=== PATIENT | male | born 1980 | race African-American/Black ===

== ENCOUNTER 2020-01-18 22:02 | Emergency (ER) | payer SELFPAY ==
[~2020-01-18] VITALS: Ht 188 cm; Wt 112.3 kg
[2020-01-18 22:11] VITALS: BP 123/81; TEMP 98.1
[2020-01-19 00:16] VITALS: PULSE 60
== END 2020-01-19 00:16 | disposition home or self-care (01) ==
LOC: COL.ER 22:02
DX: S09.90XA Unspecified injury of head, initial encounter (principal); S80.12XA Contusion of left lower leg, initial encounter; F32.9 Major depressive disorder, single episode, unspecified; V43.52XA Car driver injured in collision with other type car in traffic accident, initial encounter; Y92.410 Unspecified street and highway as the place of occurrence of the external cause

== ENCOUNTER 2023-02-19 13:21 | Emergency (ER) | payer OTHER ==
[~2023-02-19] VITALS: Ht 188 cm; Wt 97.7 kg
[2023-02-19 13:29] VITALS: TEMP 98.6
[2023-02-19 13:58] LABS: HEMATOCRIT 44.1 % (42.0-52.0); HEMOGLOBIN 14.9 g/dl (13.5-18.0); MEAN CELL VOLUME 89 fl (80.0-100.0); MEAN CORPUSCULAR HEMOGLOBIN 30 pg (27-31); MEAN CORPUSCULAR HGB CONC 34 g/dl (33.0-37.0); MEAN PLATELET VOLUME 11.6 fl (7.4-10.4); PLATELET COUNT 146 K/mm3 (130-400); RED BLOOD COUNT 4.95 M/mm3 (4.20-5.60); REDCELL DISTRIBUTION WIDTH-CV 13.8 % (11.5-14.5)
[2023-02-19 14:14] LABS: ALBUMIN 3.7 gm/dL (3.5-5.0); BILIRUBIN,TOTAL 0.6 mg/dL (0.2-1.2); CALCIUM 9.1 mg/dL (8.4-10.2); POTASSIUM 4.1 mmol/L (3.5-4.5); TOTAL PROTEIN 7.8 gm/dL (6.2-8.1)
[2023-02-19] MEDS ORDERED: CLEOCIN HCL300 MG PO (14:20)
[2023-02-19 14:23] LABS: CREATININE, serum 0.88 mg/dL (0.72-1.25)
[2023-02-19 14:36] LABS: BAND 1 % (0-10); EOSINOPHIL 1 % (0-4); LYMPHOCYTE 21 % (20.0-51.0); NEUTROPHILS 67 % (42.0-75.2); PLATELET ESTIMATE NORMAL (NORMAL)
[2023-02-19 15:10] VITALS: BP 146/87; PULSE 86
== END 2023-02-19 15:10 | disposition home or self-care (01) ==
LOC: COL.ER 13:21
PROVIDERS: Physician Assistant
DX: J36 Peritonsillar abscess (principal); D72.829 Elevated white blood cell count, unspecified; Z28.310 Unvaccinated for COVID-19
CPT/HCPCS: J1100; J7030

== ENCOUNTER 2023-03-30 12:09 | Observation (INO) | payer OTHER ==
[~2023-03-30] VITALS: Ht 190.5 cm; Wt 106.0 kg
[~2023-03-30 12:09] MED LIST: CLEOCIN HCL300 MG PO
[2023-03-30 12:44] LABS: BASO % 0.4 % (0.0-2.0); EOS # 0.1 K/mm3 (0.0-0.7); EOS % 0.8 % (0.0-4.0); GRAN % 69.3 % (42.2-75.2); HEMATOCRIT 48.9 % (42.0-52.0); HEMOGLOBIN 16.6 g/dl (13.5-18.0); LYMPH # 1.2 K/mm3 (1.2-3.4); LYMPH % 16.7 % (20.0-51.0); MEAN CELL VOLUME 90 fl (80.0-100.0); MEAN CORPUSCULAR HEMOGLOBIN 31 pg (27-31); MEAN CORPUSCULAR HGB CONC 34 g/dl (33.0-37.0); MEAN PLATELET VOLUME 10.6 fl (7.4-10.4); MONO # 0.9 K/mm3 (0.1-0.6); MONO % 12.5 % (1.7-9.3); PLATELET COUNT 134 K/mm3 (130-400); RED BLOOD COUNT 5.42 M/mm3 (4.20-5.60); REDCELL DISTRIBUTION WIDTH-CV 14.1 % (11.5-14.5)
[2023-03-30 13:00] LABS: BILIRUBIN,TOTAL 0.6 mg/dL (0.2-1.2); C-REACTIVE PROTEIN 4.01 mg/dL (0.00-0.50); CALCIUM 9.6 mg/dL (8.4-10.2); CREATININE, serum 0.91 mg/dL (0.72-1.25); POTASSIUM 3.6 mmol/L (3.5-4.5)
[2023-03-30 15:30] VITALS: BP_SYST 142
[2023-03-30 15:59] VITALS: BP 142/73; PULSE 76; TEMP 97.9
--- NOTE | 2023-03-30 18:38 | NUR ---
Pt arrived to room 307 with dx of SBO at approximately 1600. NG in place to right nare on LIS. Denies nausea or pain. IVF infusing to LAC without complications. Intake, Physical Assessment and Med Rec completed. at bedside.
[2023-03-30 19:07] VITALS: BP 145/78; PULSE 70; TEMP 98.3
[2023-03-30 19:25] VITALS: BP_SYST 145
[2023-03-30 23:38] VITALS: BP 132/78; PULSE 75; TEMP 98.4
[2023-03-30 23:50] VITALS: BP_SYST 132
[2023-03-31 03:27] VITALS: BP 132/86; PULSE 66; TEMP 98.2
[2023-03-31 04:00] VITALS: BP_SYST 132
[2023-03-31 07:18] VITALS: BP 137/82; PULSE 79; TEMP 97.5
[2023-03-31 07:18] LABS: BASO % 0.4 % (0.0-2.0); EOS # 0.1 K/mm3 (0.0-0.7); EOS % 0.8 % (0.0-4.0); GRAN # 5.5 K/mm3 (1.4-6.5); GRAN % 69.1 % (42.2-75.2); HEMATOCRIT 43.6 % (42.0-52.0); HEMOGLOBIN 14.9 g/dl (13.5-18.0); LYMPH # 1.5 K/mm3 (1.2-3.4); LYMPH % 18.6 % (20.0-51.0); MEAN CELL VOLUME 88 fl (80.0-100.0); MEAN CORPUSCULAR HEMOGLOBIN 30 pg (27-31); MEAN CORPUSCULAR HGB CONC 34 g/dl (33.0-37.0); MEAN PLATELET VOLUME 11.3 fl (7.4-10.4); MONO # 0.9 K/mm3 (0.1-0.6); MONO % 10.8 % (1.7-9.3); PLATELET COUNT 143 K/mm3 (130-400); RED BLOOD COUNT 4.97 M/mm3 (4.20-5.60)
[2023-03-31 07:41] LABS: CALCIUM 8.6 mg/dL (8.4-10.2); CREATININE, serum 0.92 mg/dL (0.72-1.25); POTASSIUM 3.7 mmol/L (3.5-4.5)
--- NOTE | 2023-03-31 07:42 | NUR ---
Patient is NPO at this time. NG is still in place. Pt stated he did have a bowel movement last night. He denied pain but has discomfort from the NG. Lungs clear at this time. No edema. Eyes accommodate appropriately. He is alert and oriented x 3. Will continue to monitor.
--- NOTE | 2023-03-31 07:52 | NUR ---
Report received on patient.
--- NOTE | 2023-03-31 09:16 | NUR ---
Initial visit; Patient thanked Enrollment Representative for looking in on him and offering God's blessings. Enrollment Representative contacted his [employer] by leaving a message that requests a call or visit to [facility]'s hospital room.
--- NOTE | 2023-03-31 10:21 | NUR ---
Rec'd order to discontinue NG tube. This nurse described procedure of removal to patient prior to performing. NG removed. Patient was ordered to have a clear liquid diet and advance if he tolerates it well. Temperature was 98.9. Will continue to monitor.
--- NOTE | 2023-03-31 10:39 | NUR ---
SW met with patient to complete intake. Patients Dorie ([phone]) present at bedside. Together they live at home with their children in [place]. Children are being cared for by other family memebers. Patient is fully independent with his ADL's and IADL's.He has no DME or home oxygen needs. PCP is and he utilizes [facility] pharmacy for prescriptions. 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 Patient is planning on returning home once medically ready. Discharge plan: Home
--- NOTE | 2023-03-31 11:49 | NUR ---
Patients IV came out. Nurse put gauze and coban over the site. Currently no IV access. notified. Call light within reach
[2023-03-31 12:01] VITALS: BP 143/84; PULSE 87; TEMP 99
[2023-03-31 13:00] VITALS: BP_SYST 143
--- NOTE | 2023-03-31 15:43 | NUR ---
Pt was able to tolerate a clear liquid diet and then was advanced as tolerated. He was given pudding and did fine. He is being discharged home on a bland diet and he was given discharge instructions and education. He acknowledged understanding. His IV had come out earlier after his shower. He is leaving with family per wheelchair. He was informed he may follow up with PCP especially if he needs a note for his work.
== END 2023-03-31 15:41 | disposition home or self-care (01) ==
LOC: COL.ER 12:09 → MEDICAL 14:31 → COL.ER 14:31 → MEDICAL 14:31
PROVIDERS: Nurse Practitioner; ADMIT Surgery
DX: A08.4 Viral intestinal infection, unspecified (principal)
CPT/HCPCS: G0378; J2270; J2405; J7030; Q9967